=== PATIENT | female | born 1990 | race Caucasian/White ===

== ENCOUNTER → 2016-12-15 | Outpatient (CLI) | payer OTHER | END | disposition home or self-care (01) | LOC: LAB 15:27 | PROVIDERS: ATTEND Internal Medicine | DX: I73.00 Raynaud's syndrome without gangrene (principal); M25.50 Pain in unspecified joint | CPT/HCPCS: 36415; 84436; 84443; 84480 ==

== ENCOUNTER → 2017-07-28 | Outpatient (CLI) | payer OTHER | END | disposition home or self-care (01) | LOC: RAD 16:16 | PROVIDERS: ATTEND Nurse Practitioner Family | DX: M51.16 Intervertebral disc disorders with radiculopathy, lumbar region (principal); M51.26 Other intervertebral disc displacement, lumbar region | CPT/HCPCS: 72114; 72148 ==

== ENCOUNTER 2021-03-13 06:15 | Emergency (ER) | payer BC, OTHER ==
[~2021-03-13] VITALS: Ht 160 cm; Wt 55.0 kg
--- NOTE | 2021-03-13 06:54 | NUR ---
PATIENT CAME INTO THE ER TODAY AFTER SHE STARTED HAVING HEAVY VAGINAL BLEEDING STARTED AT APPROX 0430. PATIENT STATES SHE PASSED A LARGE CLOT AND WITHIN 60 MIN SATURATED ONE PAD. SINCE APPROX 0530 PATIENT STATES SHE HAS SATURATED A PAD EVERY 15-20 MINUTES.
--- NOTE | 2021-03-13 06:58 | NUR ---
REPORT GIVEN TO AMANDA TOVAR
--- NOTE | 2021-03-13 07:00 | NUR ---
report received from Gretel PATEL
--- NOTE | 2021-03-13 07:00 | NUR ---
PRECEPTOR RN NOTE, LATE ENTRY FOR 0700: REPORT TAKEN FROM AMANDA KELLER. MD VALDIVIA AT BEDSIDE SPEAKING WITH PT. PT IS PASSING LARGE CLOTS, APPROX 4-5 CM IN DIAMETER AND HAS SATURATED A REHAN PAD, VISUALIZED BY . PT STATES SHE HAS HAD VAG BLEEDING X 2.5 WEEKS, BUT BLEEDING HAS INCREASED STEADILY AND PT BEGAN TO PASS LARGE CLOTS THIS AM, PROMPTING HER TO CALL HER OB WHO DIRECTED HER TO ED. PT HAD A CONFIRMED WITH [facility] FOR OUTPATIENT ENDOSCOPY (TO EVALUATE PT'S ULCERATIVE COLITIS), PT HAD BEEN HAVING VAGINAL BLEEDING PRIOR TO POSITIVE TEST, WHICH SHE THOUGHT WAS HER PERIOD. PT HAD AN ULTRASOUND AT HER OBGYN 5 DAYS AGO WHICH WAS SUSPICIOUS FOR CERVICAL ECTOPIC , PT WAS INSTRUCTED TO COME TO ED IF VAGINAL BLEEDING INCREASED WHICH SHE DID THIS AM. PT ATTACHED TO BP AND SPO2 MONITORS, CALL LIGHT IN REACH, BLANKETS PROVIDED, REHAN PAD CHANGE, PT INDEPENDENT WITH CHRISTINE CARE. AT BEDSIDE. PT AWAKE, ALERT AND ORIENTED, RESPS EVEN AND UNLABORED, VERBAL SUPPORT GIVEN.
--- NOTE | 2021-03-13 07:10 | NUR ---
PT TO US
[2021-03-13 07:21] LABS: BASOPHILS % (AUTO) 1 % (0-1); EOSINOPHILS % (AUTO) 2 % (1-7); LYMPHOCYTES % (AUTO) 26 % (22-44); MEAN CORPUSCULAR HEMOGLOBIN 32.2 pg (27.0-34.8); MEAN CORPUSCULAR HGB CONC 33.7 g/dL (32.4-35.8); MEAN PLATELET VOLUME 9.2 fL (7.4-10.4); MONOCYTES % (AUTO) 6 % (2-9); NEUTROPHILS % (AUTO) 65 % (42-75); PLATELET COUNT 207 x10^3/uL (130-400); RED BLOOD COUNT 4.03 x10^6/uL (3.82-5.3); RED CELL DISTRIBUTION WIDTH 13.1 % (9.6-15.2)
[2021-03-13 07:31] LABS: ALBUMIN 3.9 g/dL (3.4-5.0); ANION GAP 5 mmol/L (5-15); CALCIUM 8.8 mg/dL (8.5-10.1); CHLORIDE 111 mmol/L (98-107)
--- NOTE | 2021-03-13 08:00 | NUR ---
LATE ENTRY FOR 0800: PT RETURNED FROM US, PIV PLACED PER MD ORDER. PT IS AWAKE, ALERT AND ORIENTED, RESPS EVEN AND UNLABORED. AT BEDSIDE. PT HAS SATURATED 2 ADDITIONAL PADS SINCE ARRIVAL, EACH WITH LARGE BLOOD CLOT OF 4-5 CM IN DIAMETER. PT DENIES ANY DIZZINESS OR PAIN AT THIS TIME. AND MOTHER AT BEDSIDE.
[2021-03-13] MEDS ORDERED: SODIUM CHLORIDE 0.9% 1,000ML IVBOLUS ONE ×2 (08:30→10:30)
[2021-03-13] MEDS ORDERED: TRANEXAMIC ACID 500 MG in SODIUM CHLORIDE 0.9% 100 ML IVPB ONE (09:00)
[2021-03-13] MEDS ORDERED: MISOPROSTOL 200 MCG TABLET PO ONE (09:00)
--- NOTE | 2021-03-13 09:00 | NUR ---
LATE ENTRY FOR 0900 D/T PATIENT CARE: OBGYN HAS BEEN CONSULTED BY ELIU VALDIVIA. PT IS SATURATING PADS MORE FREQUENTLY, Q5-10 MIN PASSING LARGE CLOT (4-5 CM IN DIAMETER) WITH LARGE AMOUNT OF BRIGHT RED BLOOD COVERING PAD (APPROX 25-50% WITH EACH PAD CHANGE). ELIU VALDIVIA NOTIFIED OF FREQUENCY/AMT BLOOD CLOTS AND MARQUITA BLOOD DISPELLED VAGINALLY, ELIU HAS ALSO NOTIFIED OBGYN THAT WAS CONSULTED. TXA AND CYTOTEC ORDERED. ELIU VALDIVIA GAVE RN TO ADMINISTER CYTOTEC BUCCALLY, PILLS TO BE DISSOLVED IN PT'S MOUTH (CHEEK), REMANTS TO BE SWALLOWED WITH WATER AFTER 30 MIN HELD IN CHEEK. PT UPDATED WITH POC, PT A&O, RESPS EVEN AND UNLABORED, DENIES DIZZINESS OR PAIN. CALL LIGHT IN REACH, AND MOTHER AT BEDSIDE.
--- NOTE | 2021-03-13 09:30 | NUR ---
LATE ENTRY FOR 929 D/T PATIENT CARE: PT MEDICATED PER EMAR INSTRUCTED BY MD, PT TOLERATED WELL WITH NO S/SX ASPIRATION. TXA ADMINISTERED VIA IV PUMP AT PRESCRIBED RATE. PER PHARMACIST, NO CARDIAC MONITORING REQUIRED FOR THESE MEDICATIONS. PT A&O, RESPS EVEN AND UNLABORED, NADN AT THIS TIME.
[2021-03-13 09:57] LABS: BASOPHILS % (AUTO) 1 % (0-1); EOSINOPHILS % (AUTO) 2 % (1-7); LYMPHOCYTES % (AUTO) 29 % (22-44); MEAN CORPUSCULAR HGB CONC 34.3 g/dL (32.4-35.8); MEAN PLATELET VOLUME 9.1 fL (7.4-10.4); MONOCYTES % (AUTO) 6 % (2-9); NEUTROPHILS % (AUTO) 62 % (42-75); PLATELET COUNT 168 x10^3/uL (130-400); RED BLOOD COUNT 3.37 x10^6/uL (3.82-5.3); RED CELL DISTRIBUTION WIDTH 13.1 % (9.6-15.2)
--- NOTE | 2021-03-13 10:00 | NUR ---
LATE ENTRY FOR 1000: PT SATURATING ONE PAD, EACH CONTAING ONE LARGE BLOOD CLOT (4-5 CM IN DIAMETER) Q10-20 MIN. PT IS A&O, RESPS EVEN AND UNLABORED, DENIES DIZZINESS/PAIN. PT NOTES MILD UTERINE CRAMPING, MD NOTIFIED. MD UPDATED PT STILL SATURATING PAD WITH MARQUITA BLOOD AND LARGE CLOTS Q10-20 MIN, CLOTS VISUALIZED BY EDMD.
--- NOTE | 2021-03-13 10:54 | NUR ---
ELIU VALDIVIA AWARE OF REPEAT H/H LEVEL, SECOND LITER NS ORDERED AND STARTED. PT A&O, RESPS EVEN AND UNLABORED, BP AND SPO2 MONITORS IN PLACE. CALL LIGHT IN REACH. AND MOTHER AT BEDSIDE. PT HAS NO COMPLAINT AT THIS TIME. NO INCREASE IN BLEEDING/CLOTS NOTED.
--- NOTE | 2021-03-13 12:12 | NUR ---
REPEAT BP 108/31, EDMD VALDIVIA NOTIFIED. MD NOTIFIED PT HAS NOW HAD TOTAL 23 SATURATED CHUX PADS WITH ONE LARGE BLOOD CLOT ON EACH PAD (APPROX 4-5 CM IN DIAMETER). PT REQUIRNG NEW REHAN PAD Q20 MIN. PT IS A&OX4, RESPS EVEN AND UNLABORED, ADMITS TO TRANSIENT LIGHTHEADEDNESS, DENIES PAIN. SPEECH CLEAR. PADS BEING SATURATED PT TO BE ADMITTED TO MED SUR[facility] FOR OBSERVATION.
--- NOTE | 2021-03-13 13:00 | NUR ---
BP improved, pt is a&o, resps even and unlabored, nadn. pt has no complaint at this time. all monitors in place, pt is normal sinus rhythm rate 60-80s with no ectopy. pt has no complaint at this time. ELIU Mera at bedside for reassessment. pt saturating chux pad q30 min with one large blood clot (4-5 cm) per pad. pt has observational admit orders placed, pt to be observed for vaginal bleeding and fluid volume status. pt and /mother updated with POC, agreeable.
--- NOTE | 2021-03-13 13:15 | NUR ---
EDMD TO COMPLETE PELVIC EXAM, SET UP COMPLETE. MD VALDIVIA NOTIFIED.
[2021-03-13] MEDS ORDERED: PROBIOTIC PO (13:43)
[2021-03-13] MEDS ORDERED: MESA1.2T PO (13:43)
[2021-03-13] MEDS ORDERED: PRENATAL PO (13:43)
--- NOTE | 2021-03-13 14:35 | NUR ---
pelvic exam performed by ELIU Mera, several medium sized clots evacuated during exam (2-3 cm in diameter), bleeding slowed to moderate. pt denies pain, tolerated pelvic exam well. order received from ELIU Mera to discharge after 30 minute observation period. per ELIU, pt does not require repeat hemoglobin/hematocrit draw. 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 nadn. pt declines PO nourishment at this time.
[2021-03-13 15:06] VITALS: BP 113/66
--- NOTE | 2021-03-13 15:41 | NUR ---
DC ORDERS RECEIVED FROM ELIU VALDIVIA. PT GIVEN DC INSTRUCTIONS WITH RETURN CRITERIA. BLEEDING SLOWED SIGNIFICANTLY AT TIME OF DC, LESS THAN ONE REHAN PAD SATURATED IN LAST HOUR. NO CLOTS NOTED SINCE PELVIC EXAM ONE HOUR AGO. PT IS A&O, RESPS EVEN AND UNLABORED, NEUROLOGICALLY INTACT. PT DENIES CHEST PAIN, NOTES MILD UTERINE CRAMPING BUT NO OTHER COMPLAINT AT DC. PIV DC'D WITH TIP INTACT. PT TOLERATING PO JUICE WITH NO N/V OR ASPIRATION. PT AMBULATORY TO DC DESK WITH STEADY GAIT, ALL QUESTIONS ANSWERED.
== END 2021-03-13 15:42 | disposition home or self-care (01) ==
LOC: ED 10:06 → EDIP 11:58 → UNDOADMOB 11:58 → EDIP 14:29 → ED 15:36
DX: O03.9 Complete or unspecified spontaneous abortion without complication (principal); O99.011 Anemia complicating pregnancy, first trimester; Z32.01 Encounter for pregnancy test, result positive; Z3A.01 Less than 8 weeks gestation of pregnancy
CPT/HCPCS: 36415; 76801; 80048; 82040; 84702; 85025; 86850; 86900; 86901; 96365; 99285; J7030